=== PATIENT | male | born 1975 | race Hispanic/Latino ===

== ENCOUNTER 2017-04-07 10:50 | Emergency (ER) | payer MEDICARE ==
[2017-04-07 11:23] VITALS: BMI 41.0
[2017-04-07 11:28] VITALS: TEMP 99.1
[2017-04-07] MEDS ORDERED: cefTRIAXone 1 gm 1 GM/100 ML BAG IVPB STA (12:00)
--- NOTE | 2017-04-07 12:27 | ED PDOC ---
Arrival/HPI - General Chief Complaint: Medical Clearance Time Seen by Provider: 04/07/17 11:56 Historian: Patient - History of Present Illness Narrative History of Present Illness (Text): 04/07/17 12:33 A 41 year old male presents to the emergency department complaining of a swollen , erythematous mass on left mandible since yesterday. Denies any pain to area, earache, tooth pain, congestion, fever or any other complaints at this time. Denies drinking or smoking. History provided by patient's mother, patient is mentally challenged. PMD: Dr. Ross Symptom Onset: Sudden Symptom Course: Unchanged Activities at Onset: Rest Context: Home Associated Symptoms (Text): 04/07/17 12:35 Nontender Swollen erythematous large mass on the left mandible since yesterday. History from the patient's mother as he is mentally challenged. No earache cough congestion or URI. No sore throat. No dental pain. Past Medical History - Provider Review Nursing Documentation Reviewed: Yes - Infectious Disease Hx of Infectious Diseases: None - Cardiac Hx Hypertension: Yes - Integumentary Hx Psoriasis: Yes - Psychiatric Hx Psychophysiologic Disorder: Yes Hx Substance Use: No - Anesthesia Hx Anesthesia: No Family/Social History - Physician Review Nursing Documentation Reviewed: Yes Family/Social History: No Known Family HX Smoking Status: Never Smoked Hx Alcohol Use: No Hx Substance Use: No Allergies/Home Meds Allergies/Adverse Reactions: Allergies No Known Allergies Allergy (Verified 04/07/17 11:22) Home Medications: Home Meds Medication Instructions Recorded Confirmed Benztropine [Cogentin] 1 tab PO BID 04/07/17 04/07/17 Enalapril Maleate [Vasotec] 1 tab PO DAILY 04/07/17 04/07/17 Haloperidol [Haldol] 1 tab PO DAILY 04/07/17 04/07/17 LORazepam [Ativan] 1 tab PO BID 04/07/17 04/07/17 Review of Systems - Physician Review All systems were reviewed & negative as marked: Yes - Review of Systems Constitutional: absent: Fevers ENT: absent: Sinus Congestion, Other (earache, tooth pain) Skin: Other (swollen, erythematous mass on left mandible ) Physical Exam Vital Signs Reviewed: Yes Vital Signs Temp Pulse Resp BP Pulse Ox 04/07/17 13:57 85 17 153/69 H 98 04/07/17 13:00 100 H 17 149/99 H 99 04/07/17 11:27 99.1 F 108 H 18 151/103 H 95 Temperature: Afebrile Blood Pressure: Hypertensive Pulse: Tachycardic Respiratory Rate: Normal Appearance: Positive for: Well-Appearing, Non-Toxic, Comfortable Pain Distress: None Mental Status: Positive for: Alert and Oriented X 3 - Systems Exam Head: Present: Atraumatic, Normocephalic Pupils: Present: PERRL Extroacular Muscles: Present: EOMI Conjunctiva: Present: Normal Ears: Present: NORMAL TM, Normal Canal. No: Erythema Mouth: Present: Moist Mucous Membranes Pharnyx: No: ERYTHEMA, EXUDATE, TONSILS ENLARGED Neck: Present: Normal Range of Motion Respiratory/Chest: Present: Clear to Auscultation, Good Air Exchange. No: Respiratory Distress, Accessory Muscle Use Cardiovascular: Present: Regular Rate and Rhythm, Normal S1, S2. No: Murmurs Abdomen: Present: Normal Bowel Sounds. No: Tenderness, Distention, Peritoneal Signs Back: Present: Normal Inspection Upper Extremity: Present: Normal Inspection. No: Cyanosis, Edema Lower Extremity: Present: Normal Inspection. No: Edema Neurological: Present: GCS=15, CN II-XII Intact, Speech Normal Skin: Present: Warm, Dry, Normal Color, Other (6 cm L mandible mass nontender, nonmobile, erythematous, warmth extending into neck). No: Rashes Psychiatric: Present: Alert, Oriented x 3, Normal Insight, Normal Concentration Medical Decision Making ED Course and Treatment: 04/07/17 12:23 Impression: A 41 year old male with swollen, erythematous mass on let mandible. Plan: -- CT neck soft tissue -- labs -- Rocephin -- Reassess and disposition Progress Notes: 04/07/17 14:03 CT NECK WITHOUT CONTRAST Creator : Raj Barragan MD IMPRESSION: Solid mass in the superficial lobe of the left parotid gland measuring 18 x 26 mm in size. Additional smaller lesions are seen. Findings are suggestive of intra parotid lymph nodes. Inflammatory changes are also seen in the adjacent fat planes. 04/07/17 14:17 CT scan shows parotitis. Discharged home accompanied by mother to follow-up with Dr. Ross. Prescription for Augmentin and Naprosyn. - Lab Interpretations Lab Results: 04/07/17 12:15 04/07/17 12:15 Lab Results 04/07/17 12:15: Sodium 141, Potassium 3.9, Chloride 102, Carbon Dioxide 28, Anion Gap 15, BUN 13, Creatinine 1.0, Est GFR ( Amer) > 60, Est GFR (Non- Af Amer) > 60, Random Glucose 103, Calcium 8.4, Total Bilirubin 0.5, AST 18, ALT 29, Alkaline Phosphatase 93, Total Protein 7.1, Albumin 3.6, Globulin 3.5, Albumin/Globulin Ratio 1.0 L 04/07/17 12:15: WBC 12.8 H, RBC 4.54, Hgb 13.1 L, Hct 39.4 L, MCV 86.8, MCH 28.9 , MCHC 33.2, RDW 13.3, Plt Count 214, MPV 12.2 H, Gran % 79.8 H, Lymph % (Auto) 14.1 L, [place] % (Auto) 5.1, Eos % (Auto) 0.8 L, Baso % (Auto) 0.2, Gran # 10.18 H , Lymph # 1.8, [place] # 0.7 H, Eos # 0.1, Baso # 0.02 I have reviewed the lab results: Yes - RAD Interpretation Radiology Orders: 04/07/17 12:01 NECK SOFT TISSUE W/O CONTRAST [CT] Stat - Medication Orders Current Medication Orders: Discontinued Medications Ceftriaxone Sodium (Rocephin 1 Gram Ivpb) 1 gm in 100 mls @ 200 mls/hr IVPB STAT STA PRN Reason: Protocol Stop: 04/07/17 12:29 Last Admin: 04/07/17 12:20 Dose: 200 mls/hr - Scribe Statement The provider has reviewed the documentation as recorded by the Annita Mcconnell Provider Scribe Attestation: All medical record entries made by the Annita were at my direction and personally dictated by me. I have reviewed the chart and agree that the record accurately reflects my personal performance of the history, physical exam, medical decision making, and the department course for this patient. I have also personally directed, reviewed, and agree with the discharge instructions and disposition. Disposition/Present on Arrival - Present on Arrival Any Indicators Present on Arrival: No History of DVT/PE: No History of Uncontrolled Diabetes: No Urinary Catheter: No History of Decub. Ulcer: No History Surgical Site Infection Following: None - Disposition Have Diagnosis and Disposition been Completed?: Yes Diagnosis: Parotitis Disposition: HOME/ ROUTINE Disposition Time: 14:18 Patient Plan: Discharge Condition: FAIR Discharge Instructions (ExitCare): Sialoadenitis (ED) Additional Instructions: Moist heat. Follow-up with PMD. Follow up in ER as needed. Prescriptions: Amoxicillin/Clavulanate [Augmentin 875 MG-125 MG] 1 tab PO Q12 #20 tab Naproxen [Naprosyn] 500 mg PO BID #14 tab Referrals: Lexa Ross MD [Primary Care Provider] - Follow up with primary
[2017-04-07 13:17] LABS: BASO # 0.02 K/mm3 (0.0-2.0); BASO % 0.2 % (0.0-3.0); EOS # 0.1 (0.0-0.7); EOS % 0.8 % (1.5-5.0); GRAN # 10.18 (1.4-6.5); GRAN % 79.8 % (50.0-68.0); HEMOGLOBIN 13.1 gm/dL (14.0-18.0); LYMPH # 1.8 (1.2-3.4); LYMPH % 14.1 % (22.0-35.0); MEAN CELL VOLUME 86.8 fL (80.0-105.0); MEAN CORPUSCULAR HEMOGLOBIN 28.9 pg (25.0-35.0); MEAN CORPUSCULAR HGB CONC 33.2 g/dl (31.0-37.0); MEAN PLATELET VOLUME 12.2 fl (7.0-11.0); MONO # 0.7 (0.1-0.6); MONO % 5.1 % (1.0-6.0); PLATELET COUNT 214 10^3/uL (120.0-450.0); RBC 4.54 10^6/uL (3.5-6.1); RED CELL DISTRIBUTION WIDTH 13.3 % (11.5-14.5); WHITE BLOOD COUNT 12.8 10^3/ul (4.5-11.0)
[2017-04-07 13:20] LABS: ALBUMIN 3.6 g/dL (3.0-4.8); ALT/SGPT 29 U/L (7-56); AST/SGOT 18 U/L (15-59); BLOOD UREA NITROGEN 13 mg/dL (7-21); CALCIUM 8.4 mg/dL (8.4-10.5); GFR AFRICAN-AMERICAN > 60; GFR NON-AFRICAN AMERICAN > 60
[2017-04-07 13:30] VITALS: RESP 17
--- NOTE | 2017-04-07 14:01 | CT ---
PROCEDURE: CT NECK WITHOUT CONTRAST HISTORY: left jaw mass COMPARISON: None. TECHNIQUE: CT of the neck without intravenous contrast. Coronal and sagittal reformats generated. Radiation dose: DLP 494 mGy-cm This CT exam was performed using one or more of the following dose reduction techniques: Automated exposure control, adjustment of the mA and/or kV according to patient size, and/or use of iterative reconstruction technique. FINDINGS: NASOPHARYNX: Unremarkable. SUPRAHYOID NECK: Unremarkable oropharynx, oral cavity, parapharyngeal space and retropharyngeal space. INFRAHYOID NECK: Unremarkable larynx, hypopharynx, and supraglottic space. Vocal cords intact. MASS: None. GLANDS: There is a solid mass in the superficial lobe of the left parotid gland. The mass measures 18 x 26 mm in size on image 33 series 2. A smaller lesion is seen more posteriorly in the superficial lobe measuring 10 mm in diameter. This is seen on image 31. Several smaller lesions are seen. There is also small lesion in the right parotid. The findings are most consistent with intra parotid lymph nodes. Inflammatory changes are also seen in the subcutaneous fat planes adjacent to the left parotid. There is a 15 mm nodule in the right lobe of the thyroid LYMPH NODES: Mildly enlarged bilateral lymph nodes CERVICAL SPINE: No fracture or focal lesion. OTHER FINDINGS: None. IMPRESSION: Solid mass in the superficial lobe of the left parotid gland measuring 18 x 26 mm in size. Additional smaller lesions are seen. Findings are suggestive of intra parotid lymph nodes. Inflammatory changes are also seen in the adjacent fat planes.
[2017-04-07 14:25] VITALS: BP 150/70; PULSE 82; O2SAT 99
== END 2017-04-07 14:25 | disposition home or self-care (01) ==
LOC: ED 10:50
DX: K11.20 Sialoadenitis, unspecified (principal)
CPT/HCPCS: 70490; 80053; 85025; 87040; 96365; 99284; J0696